=== PATIENT | male | born 1950 | race Hispanic/Latino ===

== ENCOUNTER 2019-04-19 07:14 | Day surgery (SDC) | payer OTHER ==
[~2019-04-19] VITALS: Ht 175.3 cm; Wt 103.4 kg
[2019-04-19] VITALS (11 sets, daily range): BP systolic 122–157; BP diastolic 66–78
[~2019-04-19 07:14] MED LIST: ASPI-1026 PO; DIPH25 PO; DOCU100T PO; DOXAZOSIN PO; FENO135C4 PO; METF-446 PO; OMEPRAZOLE PO; TERB250T51 PO; VICTOZA SQ; [UNRECOGNIZED DRUG - OTHER] PO
[2019-04-19 08:31] LABS: BASOPHILS % (AUTO) 1.1 % (0.0-5.0); EOSINOPHILS % (AUTO) 10.2 % (0.0-8.0); HEMATOCRIT 37.2 % (42-54); LYMPHOCYTES % (AUTO) 27.2 % (21.0-51.0); MEAN CORPUSCULAR HEMOGLOBIN 29.1 pg (27.0-33.0); MEAN CORPUSCULAR HGB CONC 32.7 g/dL (32.0-36.0); MEAN CORPUSCULAR VOLUME 88.9 fL (79-99); MONOCYTES % (AUTO) 6.8 % (3.0-13.0); NEUTROPHILS % (AUTO) 54.7 % (40.0-77.0); PLATELET COUNT (AUTO) 171 K/uL (130-400); RED BLOOD CELL COUNT(AUTO) 4.19 MIL/uL (4.50-6.20); RED CELL DISTRIBUTION WIDTH 14.9 % (11.0-15.5); WHITE BLOOD COUNT (AUTO) 4.5 K/uL (4.8-10.8)
[2019-04-19 08:44] LABS: CREATININE 1.1 mg/dL (0.5-1.5); POTASSIUM 4.3 mmol/L (3.5-5.1)
[2019-04-19] MEDS ORDERED: LIRA0.6P2 SQ (08:44)
[2019-04-19] MEDS ORDERED: ENAL10TA PO (08:45)
[2019-04-19] MEDS ORDERED: SODIUM CHLORIDE 0.9% 1000ML 1,000 ML IV ONE (08:54)
[2019-04-19] MEDS ORDERED: PROPOFOL 10 MG/ML 20ML VIAL IV ONE ×3 (09:47→09:48)
--- NOTE | 2019-04-19 11:20 | NUR ---
BARIUM ENEMA PT STILL WAITING FOR BARIUM ENEMA TO GET DONE. PT STABLE. NO COMPLAINTS MADE. MEETS CRITERIA FOR DISCHARGE. CALLED [facility] DEPT FOR UPDATES, PER HUMA FROM [facility], THEY ARE STILL IN A PROCEDURE AND CANNOT TELL WHAT TIME THEY WILL TAKE PT. WILL CALL FOR UPDATES. PT NOTIFIED. PT HAS NO COMPLAINTS.
--- NOTE | 2019-04-19 11:55 | NUR ---
TRANSFER PT TRANSFERRED TO DAY 8. WITH PT AT BEDSIDE. PT STABLE. WAITING ON [facility] TO TAKE PT FOR BARIUM ENEMA. CALL SAUNDERS WITHIN REACH.
--- NOTE | 2019-04-19 12:55 | NUR ---
TO RADIOLOGY DEPT PT TAKEN TO RADIOLOGY DEPT VIA STRETCHER BY HUMA. PT STABLE.
[2019-04-19] MEDS ORDERED: DIATR MEGLU/DIATRIZOATE SODIUM 30 ML BOTTLE ONE (13:19)
== END 2019-04-19 14:22 | disposition home or self-care (01) ==
LOC: DAH 07:14
PROVIDERS: ATTEND Surgery
DX: Z12.11 Encounter for screening for malignant neoplasm of colon (principal); K57.30 Diverticulosis of large intestine without perforation or abscess without bleeding; K21.9 Gastro-esophageal reflux disease without esophagitis; I10 Essential (primary) hypertension; Z86.73 Personal history of transient ischemic attack (TIA), and cerebral infarction without residual deficits; Z90.49 Acquired absence of other specified parts of digestive tract; Z80.9 Family history of malignant neoplasm, unspecified; Z79.84 Long term (current) use of oral hypoglycemic drugs; Z79.899 Other long term (current) drug therapy; Z79.82 Long term (current) use of aspirin
CPT/HCPCS: 36415; 45330; 74270; 80048; 82948 ×3; 85025; 93005; A4606; J2704 ×3; J7030; Q9963